=== PATIENT | male | born 2000 | race American Indian/Alaskan Native ===

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

== ENCOUNTER 2018-06-04 20:44 | Inpatient (IN) | payer MEDICAID ==
[2018-06-04 21:13] VITALS: BMI 24.0
[2018-06-04 21:15] VITALS: O2SAT 100
--- NOTE | 2018-06-04 21:23 | ED PDOC ---
Arrival/HPI - General Chief Complaint: Psychiatric Evaluation Time Seen by Provider: 06/04/18 21:18 Historian: Patient - History of Present Illness Narrative History of Present Illness (Text): 06/04/18 21:19 17 y/o male, pmh including leukemia?, psychiatric history including anxiety/ depression, c/o feeling depression and suicidal ideation x 1 day. Pt. stated that he has alot of mood swing lately, been feeling depress, feels suicidal but no plan, no homicidal ideation, no auditory or visual hallucination. Pt. has no nausea or vomiting, no fever or chills, no abdominal or pelvic pain, no chest pain or shortness of breath, no other medical or psychological complaints. Past Medical History - Provider Review Nursing Documentation Reviewed: Yes - Past History Past History: No Previous - Infectious Disease Hx of Infectious Diseases: None - Tetanus Immunization Tetanus Immunization: Up to Date - Cardiac Hx Cardiac Disorders: No - Pulmonary Hx Respiratory Disorders: No - Neurological Hx Neurological Disorder: No - HEENT Hx HEENT Disorder: No - Renal Hx Renal Disorder: No - Endocrine/Metabolic Hx Endocrine Disorders: No - Hematological/Oncological Hx Blood Disorders: No - Integumentary Hx Dermatological Disorder: No - Musculoskeletal/Rheumatological Hx Musculoskeletal Disorders: No - Gastrointestinal Hx Gastrointestinal Disorders: No - Genitourinary/Gynecological Hx Genitourinary Disorders: No Hx Sexually Transmitted Diseases: No - Psychiatric Hx Psychophysiologic Disorder: Yes Hx Anxiety: Yes Hx Depression: Yes Hx Substance Use: Yes (xanax and pot) - Past Surgical History Past Surgical History: No Previous - Anesthesia Hx Anesthesia: No Hx Anesthesia Reactions: No Hx Malignant Hyperthermia: No - Suicidal Assessment Feels Threatened In Home Enviroment: No Family/Social History - Physician Review Nursing Documentation Reviewed: Yes Family/Social History: Unknown Family HX Smoking Status: Light Smoker < 10 Cigarettes Daily Hx Alcohol Use: Yes Hx Substance Use: Yes (xanax and pot) Hx Substance Use Treatment: No Allergies/Home Meds Allergies/Adverse Reactions: Allergies No Known Allergies Allergy (Verified 06/05/18 00:47) Review of Systems - Review of Systems Constitutional: absent: Fatigue, Fevers Eyes: absent: Vision Changes ENT: absent: Hearing Changes Respiratory: absent: SOB, Cough Cardiovascular: absent: Chest Pain Gastrointestinal: absent: Abdominal Pain, Nausea, Vomiting Skin: absent: Rash, Pruritis Neurological: absent: Headache, Dizziness Psychiatric: Depression, Suicidal Ideation. absent: Anxiety Physical Exam Vital Signs Reviewed: Yes Vital Signs Temp Pulse Resp BP Pulse Ox 06/04/18 21:15 98.6 F 76 18 133/61 100 Temperature: Afebrile Blood Pressure: Normal Pulse: Regular Respiratory Rate: Normal Appearance: Positive for: Well-Appearing, Non-Toxic, Comfortable Pain Distress: None Mental Status: Positive for: Alert and Oriented X 3 - Systems Exam Head: Present: Atraumatic, Normocephalic Pupils: Present: PERRL Extroacular Muscles: Present: EOMI Conjunctiva: Present: Normal Mouth: Present: Moist Mucous Membranes Neck: Present: Normal Range of Motion Respiratory/Chest: Present: Clear to Auscultation, Good Air Exchange. No: Respiratory Distress, Accessory Muscle Use Cardiovascular: Present: Regular Rate and Rhythm, Normal S1, S2. No: Murmurs Abdomen: No: Tenderness, Distention, Peritoneal Signs Back: Present: Normal Inspection Upper Extremity: Present: Normal Inspection. No: Cyanosis, Edema Lower Extremity: Present: Normal Inspection. No: Edema Neurological: Present: GCS=15, CN II-XII Intact, Speech Normal Skin: Present: Warm, Dry, Normal Color. No: Rashes Psychiatric: Present: Alert, Oriented x 3, Normal Insight, Normal Concentration , Depressed Mood, Suicidal Ideation Medical Decision Making ED Course and Treatment: 06/04/18 21:23 -labs/ua/uds -ekg -cxr -one on one -PES paged -Observe and reasses 06/04/18 22:37 -EKG: NSR @ 69 BPM, no acute ST or T wave changes. Note: pt. has no chest pain/ palpitation or shortness of breath. -chest xray show no active disease -labs show no acute findings -UA show -UDS show -Pt. is medically clear and stable for psychiatric evaluation -Pt. evaluated by the [facility], discussed with Dr. Yaz Montiel, suggest to admit for depression and inpatient psychiatric - Lab Interpretations Lab Results: 06/04/18 22:08 06/04/18 22:08 Lab Results 06/04/18 22:08: WBC 5.4 D, RBC 4.52, Hgb 13.8 L, Hct 40.8 L, MCV 90.3, MCH 30.5 , MCHC 33.8, RDW 13.0, Plt Count 182, MPV 9.8, Gran % 54.3, Lymph % (Auto) 39.3 H, Stephenson % (Auto) 5.6, Eos % (Auto) 0.4 L, Baso % (Auto) 0.4, Gran # 2.93, Lymph # (Auto) 2.1, Stephenson # (Auto) 0.3, Eos # (Auto) 0.0, Baso # (Auto) 0.02 06/04/18 22:08: Alcohol, Quantitative < 10 06/04/18 22:08: Salicylates < 1 L, Acetaminophen < 10.0 L 06/04/18 22:08: Sodium 145, Potassium 3.9, Chloride 106, Carbon Dioxide 30, Anion Gap 13, BUN 15, Creatinine 1.2, Est GFR ( Amer) > 60, Est GFR (Non- Af Amer) > 60, Random Glucose 80, Calcium 9.3, Total Bilirubin 0.8, AST 30, ALT 37, Alkaline Phosphatase 48, Total Protein 6.9, Albumin 4.2, Globulin 2.6, Albumin/Globulin Ratio 1.6 - RAD Interpretation Radiology Orders: 06/04/18 21:18 CHEST PORTABLE [RAD] Stat no active disease [employer] 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 Note: pt. has no chest pain/ palpitation or shortness of breath. Interpreted by ED Physician: Yes Type: 12 lead EKG Comparison: Com.w/previous EKG - Medication Orders Current Medication Orders: Discontinued Medications Acetaminophen (Tylenol 325mg Tab) 650 mg PO Q4 PRN PRN Reason: Pain, moderate (4-7) Al Hydrox/Mg Hydrox/Simethicone (Maalox Plus 30 Ml) 30 ml PO DAILY PRN PRN Reason: Upset Stomach Clonazepam (Klonopin) 1 mg PO TID ANGY PRN Reason: Protocol Last Admin: 06/05/18 08:49 Dose: 1 mg Behavioural Document 06/05/18 08:49 RGO (Rec: 06/05/18 08:49 RGO [id number]) Maintenance Maintenance Dose Yes Re-Assess: Reassess Psych Meds Document 06/05/18 09:49 RGO (Rec: 06/05/18 10:35 RGO [id number]) Reassess Psych Med Effective Hydroxyzine Pamoate (Vistaril) 50 mg PO Q8 PRN; Protocol PRN Reason: Anxiety Last Admin: 06/06/18 14:36 Dose: 50 mg Behavioural Document 06/06/18 14:36 ABO (Rec: 06/06/18 14:36 ABO [id number]) Maintenance Maintenance Dose No Nonmedicinal Nonmedicinal Interventions See nurse's notes Behavior Behavior for Medication: Anxiety Re-Assess: Reassess Psych Meds Document 06/06/18 15:36 ABO (Rec: 06/06/18 16:22 ABO [id number]) Reassess Psych Med Effective Lorazepam (Ativan) 2 mg PO Q6 PRN; Protocol PRN Reason: agitation; benzos withdrawals Last Admin: 06/07/18 07:50 Dose: 2 mg Re-Assess: Reassess Psych Meds Document 06/07/18 08:50 ABO (Rec: 06/07/18 10:31 ABO [id number]) Reassess Psych Med Effective Lorazepam (Ativan) 2 mg IM Q6 PRN; Protocol PRN Reason: Severe agitation Magnesium Hydroxide (Milk Of Magnesia) 30 ml PO DAILY PRN PRN Reason: Constipation Mirtazapine (Remeron) 15 mg PO HS ANGY Last Admin: 06/06/18 21:00 Dose: 15 mg Risperidone (Risperdal Tab) 1 mg PO AMHS ANGY PRN Reason: Protocol Last Admin: 06/07/18 10:31 Dose: Not Given Non-Admin Reason: Patient Refused Behavioural Document 06/07/18 10:31 ABO (Rec: 06/07/18 10:32 ABO [id number]) Maintenance Maintenance Dose Yes Ziprasidone (Geodon Cap) 20 mg PO Q6 PRN; Protocol PRN Reason: Agitation Last Admin: 06/05/18 18:12 Dose: 20 mg Behavioural Document 06/05/18 18:12 RGO (Rec: 06/05/18 18:12 RGO [id number]) Maintenance Maintenance Dose No Nonmedicinal Nonmedicinal Interventions Therapeutic Communication Behavior Behavior for Medication: Continuous pacing/restlessness Re-Assess: Reassess Psych Meds Document 06/05/18 19:15 DC (Rec: 06/05/18 23:08 DC [id number]) Reassess Psych Med Effective Ziprasidone (Geodon Inj) 20 mg IM Q6 PRN; Protocol PRN Reason: Severe Agitation Zolpidem Tartrate (Ambien) 5 mg PO HS PRN; Protocol PRN Reason: Insomnia Last Admin: 06/06/18 21:00 Dose: 5 mg Behavioural Document 06/06/18 21:00 BR (Rec: 06/06/18 21:00 BR [id number]) Maintenance Maintenance Dose No Nonmedicinal Nonmedicinal Interventions Redirect Therapeutic Communication Activity Give food/fluids Behavior Behavior for Medication: Anxiety Insomnia - PA / BUL[employer]ER / Resident Statement MD/DO has reviewed & agrees with the documentation as recorded. Disposition/Present on Arrival - Present on Arrival Any Indicators Present on Arrival: No History of DVT/PE: No History of Uncontrolled Diabetes: No Urinary Catheter: No History of Decub. Ulcer: No History Surgical Site Infection Following: None - Disposition Have Diagnosis and Disposition been Completed?: Yes Diagnosis: Depression, Suicidal ideation Disposition: HOSPITALIZED Disposition Time: 22:38 Patient Plan: Admission Condition: STABLE
[2018-06-04 22:24] LABS: BASO # 0.02 K/mm3 (0.0-2.0); BASO % 0.4 % (0.0-3.0); EOS % 0.4 % (1.5-5.0); GRAN # 2.93 (1.4-6.5); GRAN % 54.3 % (50.0-68.0); HEMOGLOBIN 13.8 g/dL (14.0-18.0); LYMPH # 2.1 (1.2-3.4); LYMPH % 39.3 % (22.0-35.0); MEAN CELL VOLUME 90.3 fl (80.0-105.0); MEAN CORPUSCULAR HEMOGLOBIN 30.5 pg (25.0-35.0); MEAN CORPUSCULAR HGB CONC 33.8 g/dl (31.0-37.0); MEAN PLATELET VOLUME 9.8 fl (7.0-11.0); MONO # 0.3 (0.1-0.6); MONO % 5.6 % (1.0-6.0); RBC 4.52 10^6/uL (3.5-6.1); WHITE BLOOD COUNT 5.4 10^3/ul (4.5-11.0)
[2018-06-04 22:36] LABS: ACETAMINOPHEN < 10.0 ug/ml (10.0-20.0); ALB/GLOB RATIO 1.6 (1.1-1.8); ALBUMIN 4.2 g/dL (3.0-4.8); ALT/SGPT 37 U/L (7-56); AST/SGOT 30 U/L (17-59); BLOOD UREA NITROGEN 15 mg/dL (7-21); CALCIUM 9.3 mg/dL (8.4-10.5); GFR AFRICAN-AMERICAN > 60; GFR NON-AFRICAN AMERICAN > 60; SALICYLATE < 1 mg/dL (2.0-20.0)
[2018-06-04 23:31] LABS: PH,URINE 6.5 (4.7-8.0); URINE BILIRUBIN NEGATIVE (NEGATIVE); URINE BLOOD NEGATIVE (NEGATIVE); URINE GLUCOSE (UA) NEGATIVE (NEGATIVE); URINE LEUKOCYTE ESTERASE TRACE Leu/uL (NEGATIVE); URINE PROTEIN NEGATIVE mg/dL (<30 mg/dL)
[2018-06-04 23:44] LABS: URINE APPEARANCE CLEAR (CLEAR); URINE COLOR STRAW (YELLOW)
[2018-06-05] LABS: BARBITURATES, UR NEGATIVE (NEGATIVE); BENZODIAZEPINES, UR NEGATIVE (NEGATIVE); OPIATES, UR NEGATIVE (NEGATIVE); PHENCYCLIDINE, UR NEGATIVE (NEGATIVE)
[2018-06-05 00:02] LABS: URINE RBC NEGATIVE /hpf (0-2)
[2018-06-05 00:03] LABS: URINE WBC 0 - 2 /hpf (0-6)
[2018-06-05 00:04] LABS: URINE BACTERIA FEW (NEG); URINE CALCIUM OXALATE CRYSTALS MOD /hpf
[2018-06-05 00:07] LABS: URINE AMORPHOUS SEDIMENT MODERATE
[2018-06-05 00:47] VITALS: TEMP 98.2
[2018-06-05] MEDS ORDERED: Magnesium Hydroxide Susp 30 ml UD PO PRN (00:49)
[2018-06-05] MEDS ORDERED: Alum-Mag Hydrox-Simethicone Susp (30 mL) PO PRN (00:49)
--- NOTE | 2018-06-05 01:24 | PCM.BM ---
<Valerie Vegas - Last Filed: 06/05/18 01:22> Treatment Plan Problems - Problems identified on initial assessmt Ineffective Coping Date Initiated: 06/05/18 Time Initiated: 00:00 Assessment reference: NA Status: Active Priority: 1 Anxiety Date Initiated: 06/05/18 Time Initiated: 00:00 Assessment reference: NA Status: Active Priority: 2 Medication Nonadherence Date Initiated: 06/05/18 Time Initiated: 00:00 Assessment reference: NA Status: Active Priority: 3 Treatment assets and liabiliti Patient Assests: cooperative, self-reliant, ADL independent, physically healthy , negotiates basic needs, cognitively intact Patient Liabilities: financial problems, substance abuse, legal issue - Milieu Protocol Maintain good personal hygiene: daily Encourage regular showers, daily Remind patient to perform daily oral care Conduct patient checks and document Observation sheet: Q15 minutes Maintain personal safety: every shift Educate patient to report safety concerns to staff, every shift Monitor environment for contraband/sharps Medication safety: Monitor for expected outcome, potential side effects: every shift, Assess barriers to learning: every shift, Assess readiness for medication education: every shift Discharge/Continuing Care - Education Needs Education Needs: Patient Medication, Patient Diagnosis/Disease Process, Patient Coping Skills, Patient Community resources, Patient Health Practices/Safety - Discharge Discharge Criteria: Tolerates medication w/o severe side effects, Ability to care for self <Yaz Wheeler - Last Filed: 06/05/18 14:30> - Diagnosis (1) Unspecified episodic mood disorder Status: Acute Interventions: 06/05/18 14:31 Psychoeducation Psychopharmacology/adjustment of medications as needed/ monitoring possible side effects Evaluate pt on daily basis Compliance with medications and follow up appointments Suicide and homicide risk assessment and prevention Relapse prevention Reduction of symptoms Improve functional status Family involvement As outpatient: cognitive behavioral therapy (2) Cannabis abuse Status: Acute Interventions: 06/05/18 14:32 Maintaining sobriety Relapse prevention Possible rehabilitation Motivational interviewing 12-step programs: AA meetings <Lucretia Linton - Last Filed: 06/05/18 15:45> Family Contact Family involvement: Family/SO is involved Family contact: Patient agrees to contact Family contact name: Dayday Olguin(mother) Family contacted how many times per week?: 2 <Sarah Ortiz - Last Filed: 06/06/18 14:34>
[2018-06-05 07:28] LABS: GLUCOSE,FASTING 90 mg/dL (65-110); HDL CHOLESTEROL 44 mg/dL (29-60)
[2018-06-05 07:39] LABS: LDL CHOLESTEROL 45 mg/dL (0-129)
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
--- NOTE | 2018-06-05 09:46 | RAD ---
Date of service: 06/04/2018 HISTORY: medical clearance COMPARISON: 06/05/2017 FINDINGS: LUNGS: No active pulmonary disease. PLEURA: No significant pleural effusion identified, no pneumothorax apparent. CARDIOVASCULAR: Normal. OSSEOUS STRUCTURES: No significant abnormalities. VISUALIZED UPPER ABDOMEN: Normal. OTHER FINDINGS: None. IMPRESSION: No active disease.
--- NOTE | 2018-06-05 18:47 | CARD ---
APPROVED REPORT Date of service: 06/04/2018 EKG Measurement Heart [id number] <Conclusion> Normal sinus rhythm ST elevation, consider early repolarization, pericarditis, or injury
--- NOTE | 2018-06-06 12:39 | CON ---
DATE: 06/06/2018 HISTORY OF PRESENT ILLNESS: I saw him in the psychiatric floor, resting in bed. He slept fairly well. He is a 17-year-old -[place] man, who comes in feeling very depressed with suicidal ideation for 1 day. He has had mood swings lately. Feeling suicidal, but no plan, no homicidal ideation, auditory or visual hallucinations. PAST MEDICAL HISTORY: He has a questionable past medical history including leukemia. When I asked him if he had any medical history, he denied anything. He has anxiety and depression. SOCIAL HISTORY: He takes Xanax and marijuana. He is a light smoker of cigarettes. He does drink alcohol. ALLERGIES: NO KNOWN DRUG ALLERGIES. MEDICATIONS: Does not take any medications. REVIEW OF SYSTEMS: No acute vision or hearing changes. No sore throat. No shortness of breath or cough. No chest pain or palpitations. No abdominal pain. No nausea, vomiting, constipation, or diarrhea. No skin rashes or ulcers. No headache or dizziness. He is depressed. He has suicidal ideation, no plan and not homicidal and little anxious. PHYSICAL EXAMINATION: VITAL SIGNS: Temperature 98.6, 76 pulse, 18 respiratory rate, 133/61 blood pressure, 100% O2 sat. HEENT: His head is atraumatic, normocephalic. Extraocular muscles are intact. Pupils are equal and reactive to light and accommodation. Throat is moist. NECK: Supple. HEART: Regular rate. Normal S1 and S2. LUNGS: Decreased breath sounds, but clear to auscultation bilaterally. No wheezes, no rhonchi, no rales. ABDOMEN: Soft, nontender. Positive bowel sounds. No guarding, no rebound, no CVA tenderness. EXTREMITIES: No edema. NEUROLOGIC: GCS is 15. Cranial nerves II through XII grossly intact. Speech is normal. SKIN: Warm and dry. No apparent rashes or ulcers. I can see multiple tattoos. PSYCHIATRIC: Alert and oriented x3. LYMPHATICS: Thyroid midline. No palpable lymphadenopathy appreciated. LABORATORY DATA: He has some test done. EKG with normal sinus rhythm. No acute changes. Chest x-ray with no active disease. He has a 5.4 white count, 13.8 hemoglobin, 40.8 hematocrit with 182 platelets. RPR was nonreactive. Toxicology was positive for marijuana. Urine with trace leukocytes, moderate calcium oxalate crystals. He has 145 sodium, potassium 3.9, BUN 15, creatinine 1.2, GFR is greater than 60, sugar is 80, calcium 9.3, total bili is 0.8, AST is 30, ALT is 37, alk phos 48, total protein 6.9, albumin is 4.2, globulin 2.6. Triglycerides 42, cholesterol 102, LDL is 45, HDL is 44, TSH is 0.9. I will order labs for tomorrow. CBC, chemistry and uric acid. I encouraged him to participate in groups. Talk to a psychiatrist, feel better. We will follow. Dr. Jackson dictating on Reinier Olguin who is depressed, suicidal ideation, marijuana use, questionable leukemia. I will look for uric acid to see calcium oxalate stones in his urine. Valentin Jackson DO
--- NOTE | 2018-06-06 13:32 | PCM.PYCHPN ---
<Marry Ortega - Last Filed: 06/06/18 14:36> Psychiatric Progress Note - Psychiatric Progress Note Patient Chief Complaint: Im ok. I just dont want to take the Risperdal because it makes you grow man boobs. Problems Identified/Issues Discussed: Suicide/ homicide prevention, past psychiatric h/o, current psychiatric symptoms , medical problems, risk/benefits and alternatives of medications, medications compliance, coping strategies, substance abuse h/o, relapse prevention, importance of follow up with psychiatrist and therapist, discharge plan. Medical Problems: [facility] [place] 05/2017- 1st psych hospitalization, alcohol intoxication/anxiety/agitation, [place] [facility] [place], brought back to ED by his mother and decided to sign in voluntarily, patient claims he signed himself out with a 48 hr notice [facility] [place]- involuntary commitment, ?alcohol intoxication Diagnostic Results: Vital Signs Temp Pulse Resp BP Pulse Ox 06/05/18 00:44 98.2 F 70 20 127/69 06/04/18 23:30 98.1 F 72 18 130/72 100 06/04/18 21:15 98.6 F 76 18 133/61 100 06/04/18 22:08 06/04/18 22:08 Lab Results 06/05/18 06:45: RPR Nonreactive 06/05/18 06:45: TSH 3rd Generation 0.90 06/05/18 06:45: Fasting Glucose 90, Triglycerides 42, Cholesterol 102 L, LDL Cholesterol Direct 45, HDL Cholesterol 44 06/04/18 23:06: Urine Opiates Screen Negative, Urine Methadone Screen Negative, Ur Barbiturates Screen Negative, Ur Phencyclidine Scrn Negative, Ur Amphetamines Screen Negative, U Benzodiazepines Scrn Negative, U Oth Cocaine Metabols Negative, U Cannabinoids Screen Positive H 06/04/18 23:06: Urine Color Straw, Urine Appearance Clear, Urine pH 6.5, Ur Specific [place] 1.020, Urine Protein Negative, Urine Glucose (UA) Negative, Urine Ketones Negative, Urine Blood Negative, Urine Nitrate Negative, Urine Bilirubin Negative, Urine Urobilinogen 1.0 H, Ur Leukocyte Esterase Trace H, Urine RBC Negative, Urine WBC 0 - 2, Ur Epithelial Cells 3 - 4, Calcium Oxalate Crystal Mod, Amorphous Sediment Moderate, Urine Bacteria Few 06/04/18 22:08: WBC 5.4 D, RBC 4.52, Hgb 13.8 L, Hct 40.8 L, MCV 90.3, MCH 30.5 , MCHC 33.8, RDW 13.0, Plt Count 182, MPV 9.8, Gran % 54.3, Lymph % (Auto) 39.3 H, [place] % (Auto) 5.6, Eos % (Auto) 0.4 L, Baso % (Auto) 0.4, Gran # 2.93, Lymph # (Auto) 2.1, [place] # (Auto) 0.3, Eos # (Auto) 0.0, Baso # (Auto) 0.02 06/04/18 22:08: Alcohol, Quantitative < 10 06/04/18 22:08: Salicylates < 1 L, Acetaminophen < 10.0 L 06/04/18 22:08: Sodium 145, Potassium 3.9, Chloride 106, Carbon Dioxide 30, Anion Gap 13, BUN 15, Creatinine 1.2, Est GFR ( Amer) > 60, Est GFR (Non- Af Amer) > 60, Random Glucose 80, Calcium 9.3, Total Bilirubin 0.8, AST 30, ALT 37, Alkaline Phosphatase 48, Total Protein 6.9, Albumin 4.2, Globulin 2.6, Albumin/Globulin Ratio 1.6 DSM 5 Symptoms Update: Reinier Olguin is a 17 yo male with a history of depression, anxiety, and alcohol use with 2 prior inpatient hospitalizations (one to [facility] [place]) who lives with his parents who brought himself to the ED for increasing panic attacks and depression and anxiety symptoms. He also endorsed SI while in the ED. He states that his depression and anxiety have worsened over the past week. He has felt hopeless and not motivated. He also experiences frequent panic attacks hat have interfered with his daily functioning. He states that yesterday he cried in his room most of the day and took a long walk. His mother tried to talk to him to help him feel better but it did not help. She suggested he go to the hospital to get help. Patient was seen this morning in the conference room. He is well groomed with acceptable hygiene and casual clothing. He is calm and cooperative. He is asking about being discharged. He states that he slept well. He took Remeron and Ambien. He reports tolerating these medications well but complained of sedation. It was explained to the patient that he does not have to take AMbien as this is specifically for insomnia. He refused to take Risperdal because he reports that his father had side effects with it. The patient denies having any panic attacks since he has been admitted. He reports his depressed mood and anxiety have improved. He is willing to talk to about a discharge plan involving outpatient care. He has good sleep and appetite. He is compliant with some medications and is tolerating them well without side effects. Nursing report indicates that there was an issue with the patients visitor last night potentially bringing in a cigarette. The patients room smelled like smoke, but his room was thoroughly searched and nothing was found. The patient was cautioned against having visitors bring contraband, and that consequences could include restriction of certain visitors/visitation hours. Patient has 48 hour notice in effect, and it is set to tomorrow morning. Impression: r/o panic disorder r/o generalized anxiety disorder r/o MDD r/o impulse control disorder r/o antisocial personality traits r/o bipolar disorder Alcohol use disorder Cannabis use disorder Medication Change: No Medical Record Reviewed: Yes Consults ordered or reviewed: medicine Mental Status Examination - Cognitive Function Orientation: Person, Place, Situation, Time Memory: Intact Attention: WNL Concentration: WNL Association: WNL Fund of Knowledge: [facility] Decription of patient's judgement and insights: fair insight, poor-fair judgment - Mood Mood: Neutral - Affect Affect: Constricted (but reactive at times, smiled appropriately) - Speech Speech: Appropriate - Formal Thought Process Formal Thought Process: No Impairment - Suicidal Ideation Suicidal Ideation: No - Homicidal Ideation Homicidal Ideation: No Goal/Treatment Plan - Goal/Treatment Plan Need for Continued Stay: Remain at risks for inpatient hospitalization, Severe depression anxiety, Failed transitioning Progress Toward Problem(s) and Goals/Treatment Plan: Remeron 15 mq qhs for mood, sleep, and appetite Vistaril 50 mg q8hrs for anxiety- has not required Ambien 5 mg qhs prn for insomnia- required 06/04, 06/05 Geodon PO/IM and Ativan PO/IM for agitation- required Ativan and Geodon PO x1 Hospitalist consult for acne Relaxation/breathing techniques Milieu and group therapy Family involvement (parents) consult for discharge planning- patient signed a 48 hr notice the morning of 06/05 Patient was educated about risk/benefits and alternatives of medications, coping strategies (safety plan, suicide prevention), relapse prevention, importance of follow up with psychiatrist and therapist, stay away from drugs/ alcohol/smoking. Estimated Date of D/C: 06/07/18 - Smoking Cessation Smoking Cessation Initiated: Yes <Yaz Wheeler - Last Filed: 06/06/18 15:54> Goal/Treatment Plan - Goal/Treatment Plan Progress Toward Problem(s) and Goals/Treatment Plan: agree with assessment and plan
[2018-06-07 06:37] VITALS: BP 122/79; PULSE 73; RESP 18
[2018-06-07 07:47] LABS: MEAN CELL VOLUME 90.7 fl (80.0-105.0); MEAN CORPUSCULAR HEMOGLOBIN 31.6 pg (25.0-35.0); MEAN CORPUSCULAR HGB CONC 34.8 g/dl (31.0-37.0); MEAN PLATELET VOLUME 9.7 fl (7.0-11.0); RBC 5.38 10^6/uL (3.5-6.1); WHITE BLOOD COUNT 4.3 10^3/ul (4.5-11.0)
[2018-06-07 07:57] LABS: ALB/GLOB RATIO 1.5 (1.1-1.8); ALBUMIN 4.9 g/dL (3.0-4.8); ALT/SGPT 30 U/L (7-56); AST/SGOT 26 U/L (17-59); BLOOD UREA NITROGEN 17 mg/dL (7-21); CALCIUM 9.9 mg/dL (8.4-10.5); GFR AFRICAN-AMERICAN > 60; GFR NON-AFRICAN AMERICAN > 60; URIC ACID 5.5 mg/dL (3.5-8.5)
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
--- NOTE | 2018-06-07 10:20 | PN ---
DATE: 06/07/2018 SUBJECTIVE: I saw him this morning. He tells me he is leaving today. He is on Ambien, Ativan, Geodon, Maalox, milk of magnesia, Remeron, Tylenol and Vistaril. He is in good spirits. He is smiling. He is comfortable, feeling well. Denies any depression or suicidal thoughts. PHYSICAL EXAMINATION: VITAL SIGNS: He has a 98.2 temp, 73 pulse, 122/79 blood pressure, 18 respiratory rate and 100% O2 sat on room air. HEENT: His head is atraumatic, normocephalic. HEART: Regular rate. LUNGS: Clear to auscultation. ABDOMEN: Soft. EXTREMITIES: No edema. PSYCHIATRIC: He is in good spirits. LABORATORY DATA: He has a 4.3 white count, 17 hemoglobin, 48.8 hematocrit with 195 platelets. 145 sodium, potassium 4.4, BUN 17, creatinine 1.4, GFR is greater than 60, sugar is 89, calcium is 9.9, total bili is 1.8, AST is 26, ALT is 30, alk phos 47, total protein is 8.1. TSH is 0.9. Urine was few. He was positive for marijuana when he came in, nonreactive RPR. Uric acid was 5.5. ASSESSMENT AND PLAN: He is improved mentally and he has a psychiatric discharge in place. He will be leaving today. He was here for depression, suicidal ideation, increased calcium oxalate, he had marijuana in his system. I told him not to do drugs anymore. Valentin Jackson DO MTDD
== END 2018-06-07 11:04 | disposition left against medical advice (07) | DRG 425 ==
LOC: ED 20:44 → ERH 22:38 → PSYC 23:45
PROVIDERS: ADMIT Psychiatry & Neurology Psychiatry; ATTEND Psychiatry & Neurology Psychiatry
DX: F41.0 Panic disorder [episodic paroxysmal anxiety] (principal); F39 Unspecified mood [affective] disorder; F12.10 Cannabis abuse, uncomplicated; F10.129 Alcohol abuse with intoxication, unspecified; F17.210 Nicotine dependence, cigarettes, uncomplicated; F22 Delusional disorders; G47.00 Insomnia, unspecified; R45.851 Suicidal ideations; Z81.8 Family history of other mental and behavioral disorders; Z85.6 Personal history of leukemia

== ENCOUNTER 2019-01-24 04:55 | Emergency (ER) | payer SELFPAY ==
[2019-01-24 04:55] VITALS: BMI 24.0
[2019-01-24 05:02] VITALS: RESP 18; TEMP 97.4; O2SAT 100
[2019-01-24] MEDS ORDERED: Sodium Chloride 0.9% 1,000 ML IV STA (05:14)
--- NOTE | 2019-01-24 05:24 | ED PDOC ---
Arrival/HPI - General Chief Complaint: Substance Abuse Time Seen by Provider: 01/24/19 04:57 Historian: Patient - History of Present Illness Narrative History of Present Illness (Text): 01/24/19 05:21 A 18 year old male presents to the emergency department complaining of dehydration and throbbing sensation to his head. He admits to taking Xanax, cocaine, and alcohol. He does not recall when he did this tonight. Patient saw paramedics picking up another patient and he said he needed an ambulance because he was dehydrated, so the EMS called another ambulance to take him to the ER. Patient denies any other complaints at this time. Past Medical History - Provider Review Nursing Documentation Reviewed: Yes - Past History Past History: No Previous - Infectious Disease Hx of Infectious Diseases: None - Tetanus Immunization Tetanus Immunization: Up to Date - Cardiac Hx Cardiac Disorders: No - Pulmonary Hx Respiratory Disorders: No - Neurological Hx Neurological Disorder: No - HEENT Hx HEENT Disorder: No - Renal Hx Renal Disorder: No - Endocrine/Metabolic Hx Endocrine Disorders: No - Hematological/Oncological Hx Blood Disorders: No - Integumentary Hx Dermatological Disorder: No - Musculoskeletal/Rheumatological Hx Musculoskeletal Disorders: No - Gastrointestinal Hx Gastrointestinal Disorders: No - Genitourinary/Gynecological Hx Genitourinary Disorders: No Hx Sexually Transmitted Diseases: No - Psychiatric Hx Psychophysiologic Disorder: Yes Hx Anxiety: Yes Hx Depression: Yes Hx Substance Use: Yes (xanax and pot) - Past Surgical History Past Surgical History: No Previous - Anesthesia Hx Anesthesia: No Hx Anesthesia Reactions: No Hx Malignant Hyperthermia: No - Suicidal Assessment Feels Threatened In Home Enviroment: No Family/Social History - Physician Review Nursing Documentation Reviewed: Yes Family/Social History: No Known Family HX Smoking Status: Light Smoker < 10 Cigarettes Daily Hx Alcohol Use: Yes Hx Substance Use: Yes (xanax and pot) Hx Substance Use Treatment: No Allergies/Home Meds Allergies/Adverse Reactions: Allergies No Known Allergies Allergy (Verified 06/05/18 00:47) Review of Systems - Physician Review All systems were reviewed & negative as marked: Yes - Review of Systems Constitutional: Other (dehydration) Neurological: Headache (throbbing sensation to head) Physical Exam Vital Signs Reviewed: Yes Vital Signs Temp Pulse Resp BP Pulse Ox 01/24/19 05:00 97.4 F L 95 H 18 136/71 100 Temperature: Afebrile Blood Pressure: Normal Pulse: Regular Respiratory Rate: Normal Appearance: No: Non-Toxic (mildly intoxicated) Pain Distress: None Mental Status: Positive for: Alert and Oriented X 3 - Systems Exam Head: Present: Atraumatic, Normocephalic Pupils: Present: PERRL Extroacular Muscles: Present: EOMI Conjunctiva: Present: Normal Mouth: Present: Moist Mucous Membranes Neck: Present: Normal Range of Motion Respiratory/Chest: Present: Clear to Auscultation, Good Air Exchange. No: Respiratory Distress, Accessory Muscle Use Cardiovascular: Present: Regular Rate and Rhythm, Normal S1, S2. No: Murmurs Abdomen: No: Tenderness, Distention, Peritoneal Signs Back: Present: Normal Inspection Upper Extremity: Present: Normal Inspection. No: Cyanosis, Edema Lower Extremity: Present: Normal Inspection. No: Edema Neurological: Present: GCS=15, CN II-XII Intact, Speech Normal Skin: Present: Warm, Dry, Normal Color. No: Rashes Psychiatric: Present: Alert, Oriented x 3, Intoxicated (mildly) Medical Decision Making ED Course and Treatment: Patient asking for something to drink. States that he wants something by mouth. Water given, however patient vomited x1. RN placed IV for NS bolus and zofran ivp, however patient pulled out his IV and refused another IV, states that he just wants to drink fluids. Zofran PO given instead. Patient soon stopped vomiting. Was resting comfortably on re-eval. Able to ambulate, AAOx3 and slightly intoxicated. Stable for discharge home. - Medication Orders Current Medication Orders: Sodium Chloride (Sodium Chloride 0.9%) 1,000 mls @ 999 mls/hr IV .Q1H1M STA Stop: 01/24/19 06:14 Discontinued Medications Ondansetron HCl (Zofran Inj) 4 mg IVP STAT STA Stop: 01/24/19 05:15 - Scribe Statement The provider has reviewed the documentation as recorded by the Lluvia Lizarraga Provider Scribe Attestation: All medical record entries made by the Scribe were at my direction and personally dictated by me. I have reviewed the chart and agree that the record accurately reflects my personal performance of the history, physical exam, medical decision making, and the department course for this patient. I have also personally directed, reviewed, and agree with the discharge instructions and disposition. Disposition/Present on Arrival - Present on Arrival Any Indicators Present on Arrival: No History of DVT/PE: No History of Uncontrolled Diabetes: No Urinary Catheter: No History of Decub. Ulcer: No History Surgical Site Infection Following: None - Disposition Have Diagnosis and Disposition been Completed?: Yes Diagnosis: Alcohol intoxication, Cocaine abuse Disposition: HOME/ ROUTINE Disposition Time: 07:00 Condition: STABLE Discharge Instructions (ExitCare): Polysubstance Abuse (DC) Additional Instructions: PAO DE OLIVEIRA, thank you for letting us take care of you today. Your provider was Beata Nolasco MD and you were treated for DEHYDRATION. The emergency me dical care you received today was directed at your acute symptoms. If you were prescribed any medication, please fill it and take as directed. It may take several days for your symptoms to resolve. Return to the Emergency Department if your symptoms worsen, do not improve, or if you have any other problems. Please contact your doctor or call one of the physicians/clinics you have been referred to that are listed on the Patient Visit Information form that is included in your discharge packet. Bring any paperwork you were given at discharge with you along with any medications you are taking to your follow up visit. Our treatment cannot replace ongoing medical care by a primary care provider outside of the emergency department. Thank you for allowing the [facility] team to be part of your care today. If you had an X-Ray or CT scan: A Radiologist will review the ED reading if any change in treatment is needed we will contact you. If you had a blood, urine, or wound culture: It will take several days for the results, if any change in treatment is needed we will contact you. If you had an STI test: It will take 48 hours for the results. Please call after 1 week if you have not heard back. Forms: [facility] ([place])
[2019-01-24 07:12] VITALS: BP 121/85; PULSE 85
== END 2019-01-24 07:11 | disposition home or self-care (01) ==
LOC: ED 04:55
DX: F14.10 Cocaine abuse, uncomplicated (principal); F10.129 Alcohol abuse with intoxication, unspecified